=== PATIENT | female | born 1965 | race African-American/Black ===

== ENCOUNTER 2017-10-14 09:37 | Observation (INO) ==
[2017-10-14] MEDS ORDERED: ASPIRIN 325 MG TABLET PO STA (10:00)
[2017-10-14 10:55] LABS: Basophils % 0.2 % (0.0-0.8); Eosinophils # 0.1 10*3/uL (0.0-0.87); Eosinophils % 0.7 % (0.00-10.9); Hemoglobin 13.4 GM/DL (12.0-16.0); Immature Granulocytes % 0.4 %; Immature Granulocytes Absolute 0.03 #; Lymphocytes # 1.7 10*3/uL (1.4-4.0); Lymphocytes % 19.7 % (21.3-54.2); Mean Corpuscular HGB Conc 31.9 GM/DL (32-36); Mean Corpuscular Hemoglobin 28 PG (27-34); Mean Corpuscular Volume 87.1 FL (87-102); Mean Platelet Volume 9.9 FL (9.6-12.0); Monocytes # 0.8 10*3/uL (0.11-0.8); Monocytes % 9.3 % (1.7-12.7); Neutrophils # 5.9 10*3/uL (1.4-7.4); Neutrophils % 69.7 % (38.7-73.9); Platelet Count 231 T/CUMM (130-400); Red Blood Count 4.82 MC/CUMM (3.8-5.5); Red Cell Distribution Width 15.6 % (9.3-17.3); White Blood Count 8.4 T/CUMM (4-12)
[2017-10-14 11:23] LABS: Albumin 3.5 G/DL (3.4-5.0); Bilirubin,Total 0.5 MG/DL (0.2-1.0); Calcium 9.6 MG/DL (8.5-10.1); Osmolality,Calculated 283.4 MOS/KG (273-304); Potassium 3.7 MMOL/L (3.5-5.1); Total Protein 7.9 G/DL (6.4-8.3)
[2017-10-14 12:29] LABS: Apearance,Urine CLOUDY (Clear); Bacteria,Urine Occasional /HPF (Few); Bilirubin,Urine Negative (Negative); Blood, Urine Moderate mg/dL (Negative); Glucose,Urine (UA) Negative (Negative); Hyaline Casts,Urine 17 /LPF (0-3); Ketones,Urine 5 mg/dL (Negative); Mucus,Urine Occasional /LPF (Occasional); Nitrite,Urine Positive (Negative); Protein,Urine 100 MG/DL; RBC,Urine 1 /HPF (0-4); Urine Color Amber (Yellow); Urine Specific Gravity 1.027 (1.001-1.035); Urine Urobilinogen < 2.0 EU/DL (0.2-1.0); WBC,Urine 126 /HPF (0-6)
[2017-10-14 12:31] LABS: Barbiturates Screen,Urine Negative (Negative); Benzodiazepines Screen,Urine Positive (Negative); Cannabinoid Screen,Urine Positive (Negative); Opiate Screen,Urine Positive (Negative); Phencyclidine Screen,Urine Negative (Negative)
[2017-10-14] MEDS ORDERED: cefTRIAXone 1,000 MG in SODIUM CHLORIDE 0.9% 100 ML IV STA (12:39)
[2017-10-14] MEDS ORDERED: cefTRIAXone 1,000 MG VIAL ONE (12:57)
[2017-10-14] MEDS ORDERED: ONDANSETRON 4 MG/2 ML VIAL IV PRN (15:15)
[2017-10-14] MEDS ORDERED: ACETAMINOPHEN 325 MG TABLET PO PRN (15:15)
[2017-10-14] MEDS: SODIUM CHLORIDE 0.9% 1,000 ML IV SCH (15:34)
[2017-10-14] MEDS: PIPERACILLIN/TAZOBACTAM 3,375 MG in SODIUM CHLORIDE 0.9% 100 ML IV SCH (16:01)
[2017-10-15] MEDS: PIPERACILLIN/TAZOBACTAM 3,375 MG in SODIUM CHLORIDE 0.9% 100 ML IV SCH ×3 (00:11→14:19)
[2017-10-15 06:22] LABS: Basophils % 0.3 % (0.0-0.8); Eosinophils # 0.2 10*3/uL (0.0-0.87); Eosinophils % 2.6 % (0.00-10.9); Hematocrit 38.5 VOL% (35.7-47.0); Hemoglobin 12.2 GM/DL (12.0-16.0); Immature Granulocytes % 0.2 %; Immature Granulocytes Absolute 0.01 #; Lymphocytes # 2.5 10*3/uL (1.4-4.0); Lymphocytes % 42.8 % (21.3-54.2); Mean Corpuscular HGB Conc 31.7 GM/DL (32-36); Mean Corpuscular Hemoglobin 28 PG (27-34); Mean Corpuscular Volume 89.1 FL (87-102); Mean Platelet Volume 10.4 FL (9.6-12.0); Monocytes # 0.7 10*3/uL (0.11-0.8); Monocytes % 12.1 % (1.7-12.7); Neutrophils # 2.5 10*3/uL (1.4-7.4); Platelet Count 235 T/CUMM (130-400); Red Blood Count 4.32 MC/CUMM (3.8-5.5); Red Cell Distribution Width 15.5 % (9.3-17.3); White Blood Count 5.9 T/CUMM (4-12)
[2017-10-15 06:59] LABS: Troponin I Only 0.025 NG/ML (0.00-0.045)
[2017-10-15 07:08] LABS: Calcium 9.3 MG/DL (8.5-10.1); Osmolality,Calculated 282.3 MOS/KG (273-304); Potassium 3.9 MMOL/L (3.5-5.1); Thyroid Stimulating Hormone 1.17 uIU/ml (0.358-3.74)
[2017-10-15] MEDS: PANTOPRAZOLE 40 MG TABLET PO SCH (08:14)
[2017-10-15] MEDS: SODIUM CHLORIDE 0.9% 1,000 ML IV SCH ×2 (08:15→18:02)
[2017-10-15] MEDS ORDERED: LORazepam 2 MG/1 ML VIAL IV PRN (08:55)
[2017-10-15] MEDS: levETIRAcetam 500 MG TABLET PO SCH ×2 (09:29→22:13)
[2017-10-15] MEDS ORDERED: levETIRAcetam 500 MG TABLET PO SCH (21:00)
[2017-10-15] MEDS ORDERED: CITALOPRAM 20 MG TABLET PO SCH (21:00)
[2017-10-15] MEDS ORDERED: TRIAMCINOLONE 0.1% OINT 15 GM TUBE TOP SCH (21:00)
[2017-10-15] MEDS: METOPROLOL TARTRATE 25 MG TABLET PO SCH (22:13)
[2017-10-15] MEDS: hydrALAZINE 25 MG TABLET PO SCH (22:13)
[2017-10-15] MEDS: FAMOTIDINE 20 MG TABLET PO SCH (22:14)
[2017-10-16 05:58] LABS: Basophils % 0.4 % (0.0-0.8); Eosinophils # 0.2 10*3/uL (0.0-0.87); Eosinophils % 3.5 % (0.00-10.9); Hematocrit 35.9 VOL% (35.7-47.0); Hemoglobin 11.3 GM/DL (12.0-16.0); Immature Granulocytes % 0.2 %; Immature Granulocytes Absolute 0.01 #; Lymphocytes # 2.2 10*3/uL (1.4-4.0); Lymphocytes % 38.8 % (21.3-54.2); Mean Corpuscular HGB Conc 31.5 GM/DL (32-36); Mean Corpuscular Hemoglobin 28 PG (27-34); Mean Corpuscular Volume 88.6 FL (87-102); Monocytes # 0.6 10*3/uL (0.11-0.8); Monocytes % 10.5 % (1.7-12.7); Neutrophils # 2.7 10*3/uL (1.4-7.4); Neutrophils % 46.6 % (38.7-73.9); Platelet Count 225 T/CUMM (130-400); Red Blood Count 4.05 MC/CUMM (3.8-5.5); Red Cell Distribution Width 14.8 % (9.3-17.3); White Blood Count 5.7 T/CUMM (4-12)
[2017-10-16 06:32] LABS: Calcium 8.9 MG/DL (8.5-10.1); Osmolality,Calculated 281.1 MOS/KG (273-304)
[2017-10-16] MEDS ORDERED: ASPIRIN EC 81 MG TABLET PO SCH (09:00)
[2017-10-16] MEDS ORDERED: ISOSORBIDE MONONITRATE 30 MG TABLET PO SCH (09:00)
[2017-10-16] MEDS: PANTOPRAZOLE 40 MG TABLET PO SCH (09:34)
[2017-10-16] MEDS: hydrALAZINE 25 MG TABLET PO SCH (09:34)
[2017-10-16] MEDS: METOPROLOL TARTRATE 25 MG TABLET PO SCH (09:34)
[2017-10-16] MEDS: FAMOTIDINE 20 MG TABLET PO SCH (09:35)
[2017-10-16] MEDS: levETIRAcetam 500 MG TABLET PO SCH (09:35)
[2017-10-16] MEDS: SODIUM CHLORIDE 0.9% 1,000 ML IV SCH (09:35)
[2017-10-16 11:14] VITALS: BP 138/73
[2017-10-16] MEDS ORDERED: cefTRIAXone 1,000 MG in SYRINGE 1 EACH IV SCH (13:00)
== END 2017-10-16 13:30 | disposition home or self-care (01) ==
LOC: EDBD → EDUNIT# → N.EDINP 09:37 → N.ED 09:37 → SUATTDRO 12:42 → N.EDINP 14:43 → N.5E 15:08
PROVIDERS: ADMIT Family Medicine; ATTEND Internal Medicine

== ENCOUNTER 2017-12-27 10:10 | Inpatient (IN) ==
[2017-12-27 11:48] LABS: Basophils % 0.1 % (0.0-0.8); Eosinophils % 0.1 % (0.00-10.9); Hemoglobin 13.3 GM/DL (12.0-16.0); Immature Granulocytes % 0.2 %; Immature Granulocytes Absolute 0.02 #; Lymphocytes # 0.9 10*3/uL (1.4-4.0); Lymphocytes % 9.3 % (21.3-54.2); Mean Corpuscular HGB Conc 32.4 GM/DL (32-36); Mean Corpuscular Hemoglobin 29 PG (27-34); Mean Corpuscular Volume 90.1 FL (87-102); Mean Platelet Volume 9.8 FL (9.6-12.0); Monocytes # 0.3 10*3/uL (0.11-0.8); Monocytes % 2.7 % (1.7-12.7); Neutrophils # 8.2 10*3/uL (1.4-7.4); Neutrophils % 87.6 % (38.7-73.9); Platelet Count 268 T/CUMM (130-400); Red Blood Count 4.55 MC/CUMM (3.8-5.5); Red Cell Distribution Width 14.3 % (9.3-17.3); White Blood Count 9.3 T/CUMM (4-12)
[2017-12-27 12:23] LABS: Alanine Aminotransferase 17 U/L (13-56); Albumin 3.5 G/DL (3.4-5.0); Alkaline Phosphatase 193 U/L (45-117); Aspartate Amino Transferase 24 U/L (0-37); Bilirubin,Total < 0.39 MG/DL (0.2-1.0); Blood Urea Nitrogen 25 MG/DL (7-18); Calcium 9.5 MG/DL (8.5-10.1); Glucose 182 MG/DL (74-106); Osmolality,Calculated 283.7 MOS/KG (273-304); Potassium 4.2 MMOL/L (3.5-5.1); Sodium 138 MMOL/L (136-145); Total Protein 8.5 G/DL (6.4-8.3)
[2017-12-27] MEDS ORDERED: SODIUM CHLORIDE 0.9% 1,000 ML IV STA (14:12)
[2017-12-27] MEDS ORDERED: ONDANSETRON 4 MG/2 ML VIAL IV STA (14:12)
[2017-12-27] MEDS ORDERED: ONDANSETRON 4 MG/2 ML VIAL ONE (14:15)
[2017-12-27 14:27] LABS: Apearance,Urine Slightly Hazy (Clear); Bacteria,Urine Occasional /HPF (Few); Bilirubin,Urine Negative (Negative); Blood, Urine Moderate mg/dL (Negative); Glucose,Urine (UA) Negative (Negative); Ketones,Urine Negative (Negative); Nitrite,Urine Negative (Negative); Protein,Urine 100 MG/DL; RBC,Urine 17 /HPF (0-4); Squamous Epithelial Cell,Urine Few /HPF (0-10); Urine Color Yellow (Yellow); Urine Specific Gravity 1.019 (1.001-1.035); Urine Urobilinogen < 2.0 EU/DL (0.2-1.0); WBC,Urine 1 /HPF (0-6)
[2017-12-27 14:51] LABS: Barbiturates Screen,Urine Negative (Negative); Benzodiazepines Screen,Urine Positive (Negative); Cannabinoid Screen,Urine Positive (Negative); Opiate Screen,Urine Negative (Negative); Phencyclidine Screen,Urine Negative (Negative)
[2017-12-27] MEDS ORDERED: ONDANSETRON 4 MG/2 ML VIAL IV PRN (16:22)
[2017-12-27] MEDS ORDERED: ACETAMINOPHEN 325 MG TABLET PO PRN (16:22)
[2017-12-27] MEDS: SODIUM CHLORIDE 0.9% 1,000 ML IV SCH (18:10)
[2017-12-27] MEDS: CITALOPRAM 20 MG TABLET PO SCH (20:17)
[2017-12-27] MEDS: ALPRAZolam 0.25 MG TABLET PO PRN (20:17)
[2017-12-27 20:51] LABS: Troponin I Only 0.015 NG/ML (0.00-0.045)
[2017-12-28] MEDS: SODIUM CHLORIDE 0.9% 1,000 ML IV SCH ×3 (02:40→17:09)
[2017-12-28 05:16] LABS: Calcium 7.6 MG/DL (8.5-10.1); Potassium 4.8 MMOL/L (3.5-5.1)
[2017-12-28 05:30] LABS: Basophils % 0.1 % (0.0-0.8); Hematocrit 24.4 VOL% (35.7-47.0); Immature Granulocytes % 0.6 %; Immature Granulocytes Absolute 0.09 #; Lymphocytes # 2.5 10*3/uL (1.4-4.0); Lymphocytes % 16.5 % (21.3-54.2); Mean Corpuscular Hemoglobin 29 PG (27-34); Mean Corpuscular Volume 91.4 FL (87-102); Mean Platelet Volume 9.6 FL (9.6-12.0); Monocytes # 0.7 10*3/uL (0.11-0.8); Monocytes % 4.6 % (1.7-12.7); Neutrophils % 78.2 % (38.7-73.9); Platelet Count 195 T/CUMM (130-400); Red Blood Count 2.67 MC/CUMM (3.8-5.5); Red Cell Distribution Width 14.5 % (9.3-17.3); White Blood Count 15.4 T/CUMM (4-12)
[2017-12-28 05:33] LABS: Hemoglobin 7.8 GM/DL (12.0-16.0)
[2017-12-28 06:05] LABS: Band Neutrophils 1 % (0-10); Lymphocytes 8 % (20-55); Platelet Estimate Normal; Segmented Neutrophils 88 % (50-85); Total Cells Counted 100
[2017-12-28] MEDS ORDERED: SODIUM CHLORIDE 0.9% 1,000 ML IV PRN (06:44)
[2017-12-28] MEDS: PANTOPRAZOLE 40 MG TABLET PO SCH (09:28)
[2017-12-28] MEDS: CITALOPRAM 20 MG TABLET PO SCH (21:01)
[2017-12-28] MEDS: ALPRAZolam 0.25 MG TABLET PO PRN (21:02)
[2017-12-28 22:11] LABS: Hematocrit 26.2 VOL% (35.7-47.0); Hemoglobin 8.7 GM/DL (12.0-16.0)
[2017-12-29] MEDS: SODIUM CHLORIDE 0.9% 1,000 ML IV SCH ×3 (01:08→19:12)
[2017-12-29 05:12] LABS: Basophils % 0.4 % (0.0-0.8); Eosinophils % 0.4 % (0.00-10.9); Hematocrit 26.5 VOL% (35.7-47.0); Hemoglobin 8.6 GM/DL (12.0-16.0); Immature Granulocytes % 0.3 %; Immature Granulocytes Absolute 0.03 #; Lymphocytes # 3.1 10*3/uL (1.4-4.0); Lymphocytes % 27.1 % (21.3-54.2); Mean Corpuscular HGB Conc 32.5 GM/DL (32-36); Mean Corpuscular Hemoglobin 29 PG (27-34); Mean Corpuscular Volume 88.3 FL (87-102); Mean Platelet Volume 10.2 FL (9.6-12.0); Monocytes # 0.5 10*3/uL (0.11-0.8); Monocytes % 4.4 % (1.7-12.7); Neutrophils # 7.6 10*3/uL (1.4-7.4); Neutrophils % 67.4 % (38.7-73.9); Platelet Count 150 T/CUMM (130-400); Red Cell Distribution Width 14.4 % (9.3-17.3); White Blood Count 11.3 T/CUMM (4-12)
[2017-12-29 05:29] LABS: Potassium 4.1 MMOL/L (3.5-5.1)
[2017-12-29] MEDS: PANTOPRAZOLE 40 MG TABLET PO SCH (09:25)
[2017-12-29] MEDS ORDERED: BISACODYL 5 MG TABLET PO ONE (12:00)
[2017-12-29] MEDS ORDERED: POLYETHYLENE GLYCOL POWDER 255 GM BOTTLE PO ONE (18:00)
[2017-12-29] MEDS: CITALOPRAM 20 MG TABLET PO SCH (21:13)
[2017-12-29] MEDS: ALPRAZolam 0.25 MG TABLET PO PRN (21:17)
[2017-12-30] MEDS: SODIUM CHLORIDE 0.9% 1,000 ML IV SCH ×5 (01:59→22:05)
[2017-12-30 05:12] LABS: Basophils % 0.1 % (0.0-0.8); Eosinophils # 0.1 10*3/uL (0.0-0.87); Eosinophils % 0.8 % (0.00-10.9); Hematocrit 26.1 VOL% (35.7-47.0); Hemoglobin 9.1 GM/DL (12.0-16.0); Immature Granulocytes % 0.3 %; Immature Granulocytes Absolute 0.03 #; Lymphocytes # 1.9 10*3/uL (1.4-4.0); Lymphocytes % 19.6 % (21.3-54.2); Mean Corpuscular HGB Conc 34.9 GM/DL (32-36); Mean Corpuscular Hemoglobin 30 PG (27-34); Mean Platelet Volume 9.5 FL (9.6-12.0); Monocytes # 0.5 10*3/uL (0.11-0.8); Monocytes % 5.5 % (1.7-12.7); Neutrophils # 7.2 10*3/uL (1.4-7.4); Neutrophils % 73.7 % (38.7-73.9); Platelet Count 168 T/CUMM (130-400); Red Blood Count 3.07 MC/CUMM (3.8-5.5); Red Cell Distribution Width 14.1 % (9.3-17.3); White Blood Count 9.7 T/CUMM (4-12)
[2017-12-30 05:35] LABS: Calcium 8.1 MG/DL (8.5-10.1); Osmolality,Calculated 281.1 MOS/KG (273-304)
[2017-12-30] MEDS ORDERED: MAGNESIUM CITRATE 300 ML BOTTLE PO ONE (06:00)
[2017-12-30] MEDS ORDERED: PROPOFOL 200 MG/20 ML VIAL IV ONE (10:59)
[2017-12-30] MEDS ORDERED: LIDOCAINE 1% 5 ML VIAL ONE (10:59)
[2017-12-30] MEDS: PANTOPRAZOLE 40 MG TABLET PO SCH (15:23)
[2017-12-30] MEDS: CITALOPRAM 20 MG TABLET PO SCH (21:07)
[2017-12-30] MEDS: ALPRAZolam 0.25 MG TABLET PO PRN (21:07)
[2017-12-31] MEDS: SODIUM CHLORIDE 0.9% 1,000 ML IV SCH ×3 (00:09→10:01)
[2017-12-31] MEDS ORDERED: MAGNESIUM SULF RIDER 4 GM in PREMIX 1 EACH IV PRN (08:36)
[2017-12-31] MEDS ORDERED: MAGNESIUM SULF RIDER 2 GM in PREMIX 1 EACH IV PRN (08:36)
[2017-12-31] MEDS: PANTOPRAZOLE 40 MG TABLET PO SCH (09:58)
[2017-12-31] MEDS ORDERED: METOPROLOL TARTRATE 25 MG TABLET PO ONE (12:43)
[2017-12-31] MEDS ORDERED: levETIRAcetam 500 MG TABLET PO SCH (13:00)
[2017-12-31 15:08] VITALS: BP 134/79
== END 2017-12-31 15:55 | disposition home or self-care (01) | DRG 246 ==
LOC: N.ED 10:10 → N.EDINP 15:10 → SUATTDRO 15:10 → N.TELEN 17:56
PROVIDERS: ADMIT Internal Medicine; ATTEND Internal Medicine Geriatric Medicine

== ENCOUNTER 2018-02-25 10:55 | Inpatient (IN) ==
[2018-02-25 11:56] LABS: Basophils % 0.2 % (0.0-0.8); Eosinophils # 0.1 10*3/uL (0.0-0.87); Eosinophils % 2.4 % (0.00-10.9); Hematocrit 40.3 VOL% (35.7-47.0); Hemoglobin 13.2 GM/DL (12.0-16.0); Immature Granulocytes % 0.2 %; Immature Granulocytes Absolute 0.01 #; Lymphocytes # 1.4 10*3/uL (1.4-4.0); Lymphocytes % 26.9 % (21.3-54.2); Mean Corpuscular HGB Conc 32.8 GM/DL (32-36); Mean Corpuscular Hemoglobin 29 PG (27-34); Mean Platelet Volume 9.7 FL (9.6-12.0); Monocytes # 0.4 10*3/uL (0.11-0.8); Monocytes % 6.9 % (1.7-12.7); Neutrophils # 3.2 10*3/uL (1.4-7.4); Neutrophils % 63.4 % (38.7-73.9); Platelet Count 290 T/CUMM (130-400); Red Blood Count 4.58 MC/CUMM (3.8-5.5); Red Cell Distribution Width 15.3 % (9.3-17.3); White Blood Count 5.1 T/CUMM (4-12)
[2018-02-25] MEDS ORDERED: levETIRAcetam 500 MG/5 ML VIAL IV ONE (12:17)
[2018-02-25 12:29] LABS: Albumin 3.4 G/DL (3.4-5.0); Bilirubin,Total 0.4 MG/DL (0.2-1.0); Calcium 9.6 MG/DL (8.5-10.1); Osmolality,Calculated 279.3 MOS/KG (273-304); Potassium 3.5 MMOL/L (3.5-5.1); Total Protein 8.1 G/DL (6.4-8.3)
[2018-02-25] MEDS ORDERED: ONDANSETRON 4 MG/2 ML VIAL IV PRN (13:44)
[2018-02-25 14:57] LABS: Apearance,Urine CLEAR (Clear); Bilirubin,Urine Negative (Negative); Blood, Urine Small mg/dL (Negative); Glucose,Urine (UA) Negative (Negative); Hyaline Casts,Urine 1 /LPF (0-3); Ketones,Urine Negative (Negative); Mucus,Urine Occasional /LPF (Occasional); Nitrite,Urine Negative (Negative); Protein,Urine 100 MG/DL; RBC,Urine 16 /HPF (0-4); Squamous Epithelial Cell,Urine Occasional /HPF (0-10); Urine Color Yellow (Yellow); Urine Specific Gravity 1.013 (1.001-1.035); Urine Urobilinogen < 2.0 EU/DL (0.2-1.0); WBC,Urine 3 /HPF (0-6)
[2018-02-25 15:00] LABS: Barbiturates Screen,Urine Negative (Negative); Benzodiazepines Screen,Urine Positive (Negative); Cannabinoid Screen,Urine Positive (Negative); Opiate Screen,Urine Negative (Negative); Phencyclidine Screen,Urine Negative (Negative)
[2018-02-25] MEDS ORDERED: LORazepam 2 MG/1 ML VIAL ONE (18:52)
[2018-02-25] MEDS ORDERED: LORazepam 2 MG/1 ML VIAL IV STA (18:56)
[2018-02-25] MEDS: ATORVASTATIN 40 MG TABLET PO SCH (20:45)
[2018-02-25] MEDS: ACETAMINOPHEN 325 MG TABLET PO PRN (20:45)
[2018-02-25] MEDS: traZODone 50 MG TABLET PO PRN (20:45)
[2018-02-25] MEDS: METOPROLOL TARTRATE 25 MG TABLET PO SCH (20:45)
[2018-02-25] MEDS: levETIRAcetam 500 MG TABLET PO SCH (20:46)
[2018-02-26 06:37] LABS: Calcium 9.2 MG/DL (8.5-10.1); Osmolality,Calculated 277.4 MOS/KG (273-304); Potassium 3.5 MMOL/L (3.5-5.1)
[2018-02-26] MEDS: FUROSEMIDE 20 MG TABLET PO SCH (08:48)
[2018-02-26] MEDS: SERTRALINE 50 MG TABLET PO SCH (08:48)
[2018-02-26] MEDS: levETIRAcetam 500 MG TABLET PO SCH ×2 (08:48→20:43)
[2018-02-26] MEDS: METOPROLOL TARTRATE 25 MG TABLET PO SCH ×2 (08:48→20:42)
[2018-02-26] MEDS: ASPIRIN EC 81 MG TABLET PO SCH (08:48)
[2018-02-26] MEDS: ACETAMINOPHEN 325 MG TABLET PO PRN (18:22)
[2018-02-26] MEDS: ATORVASTATIN 40 MG TABLET PO SCH (20:43)
[2018-02-26] MEDS: traZODone 50 MG TABLET PO PRN (20:45)
[2018-02-27] MEDS: levETIRAcetam 500 MG TABLET PO SCH ×2 (09:11→20:46)
[2018-02-27] MEDS: ASPIRIN EC 81 MG TABLET PO SCH (09:11)
[2018-02-27] MEDS: METOPROLOL TARTRATE 25 MG TABLET PO SCH ×2 (09:11→20:46)
[2018-02-27] MEDS: SERTRALINE 50 MG TABLET PO SCH (09:11)
[2018-02-27] MEDS: FUROSEMIDE 20 MG TABLET PO SCH (09:11)
[2018-02-27] MEDS: GABAPENTIN 100 MG CAPSULE PO SCH ×2 (15:56→20:46)
[2018-02-27] MEDS: ATORVASTATIN 40 MG TABLET PO SCH (20:46)
[2018-02-27] MEDS: DOXYCYCLINE HYCLATE 100 MG CAPSULE PO SCH (20:46)
[2018-02-28 05:26] LABS: Basophils % 0.3 % (0.0-0.8); Eosinophils # 0.2 10*3/uL (0.0-0.87); Eosinophils % 2.5 % (0.00-10.9); Hematocrit 40.1 VOL% (35.7-47.0); Immature Granulocytes % 0.1 %; Immature Granulocytes Absolute 0.01 #; Lymphocytes # 2.6 10*3/uL (1.4-4.0); Lymphocytes % 38.1 % (21.3-54.2); Mean Corpuscular HGB Conc 32.4 GM/DL (32-36); Mean Corpuscular Hemoglobin 29 PG (27-34); Mean Corpuscular Volume 88.7 FL (87-102); Mean Platelet Volume 10.5 FL (9.6-12.0); Monocytes # 0.6 10*3/uL (0.11-0.8); Monocytes % 8.5 % (1.7-12.7); Neutrophils # 3.4 10*3/uL (1.4-7.4); Neutrophils % 50.5 % (38.7-73.9); Platelet Count 305 T/CUMM (130-400); Red Blood Count 4.52 MC/CUMM (3.8-5.5); Red Cell Distribution Width 15.1 % (9.3-17.3); White Blood Count 6.7 T/CUMM (4-12)
[2018-02-28 05:51] LABS: Calcium 9.6 MG/DL (8.5-10.1); Osmolality,Calculated 279.4 MOS/KG (273-304); Potassium 3.6 MMOL/L (3.5-5.1)
[2018-02-28] MEDS: levETIRAcetam 500 MG TABLET PO SCH ×3 (09:33→20:28)
[2018-02-28] MEDS: FUROSEMIDE 20 MG TABLET PO SCH (09:33)
[2018-02-28] MEDS: ASPIRIN EC 81 MG TABLET PO SCH (09:33)
[2018-02-28] MEDS: METOPROLOL TARTRATE 25 MG TABLET PO SCH ×2 (09:34→20:29)
[2018-02-28] MEDS: DOXYCYCLINE HYCLATE 100 MG CAPSULE PO SCH ×2 (09:34→20:28)
[2018-02-28] MEDS: SERTRALINE 50 MG TABLET PO SCH (09:35)
[2018-02-28] MEDS: GABAPENTIN 100 MG CAPSULE PO SCH ×3 (09:35→20:29)
[2018-02-28] MEDS ORDERED: LORazepam 2 MG/1 ML VIAL ONE (09:48)
[2018-02-28] MEDS ORDERED: LORazepam 2 MG/1 ML VIAL IV ONE (09:50)
[2018-02-28] MEDS: LACOSAMIDE 50 MG TABLET PO SCH ×2 (10:32→20:29)
[2018-02-28] MEDS: ATORVASTATIN 40 MG TABLET PO SCH (20:28)
[2018-02-28] MEDS: traZODone 50 MG TABLET PO PRN (20:33)
[2018-03-01] MEDS: ASPIRIN EC 81 MG TABLET PO SCH (09:22)
[2018-03-01] MEDS: LACOSAMIDE 50 MG TABLET PO SCH (09:22)
[2018-03-01] MEDS: levETIRAcetam 500 MG TABLET PO SCH (09:22)
[2018-03-01] MEDS: GABAPENTIN 100 MG CAPSULE PO SCH ×2 (09:22→14:49)
[2018-03-01] MEDS: FUROSEMIDE 20 MG TABLET PO SCH (09:22)
[2018-03-01] MEDS: METOPROLOL TARTRATE 25 MG TABLET PO SCH (09:23)
[2018-03-01] MEDS: DOXYCYCLINE HYCLATE 100 MG CAPSULE PO SCH (09:23)
[2018-03-01] MEDS: SERTRALINE 50 MG TABLET PO SCH (09:23)
[2018-03-01 13:13] VITALS: BP 118/77
== END 2018-03-01 16:40 | disposition home or self-care (01) | DRG 53 ==
LOC: EDUNIT# → SUATTDRO → EDBD → N.EDINP 10:55 → N.ED 10:55 → N.EDINP 18:49 → N.4E 18:55
PROVIDERS: ADMIT Internal Medicine; ATTEND Internal Medicine

== ENCOUNTER 2020-04-06 16:53 | Inpatient (IN) ==
[2020-04-06 17:19] LABS: Basophils # 0.1 10*3/uL (0.0-0.2); Basophils % 0.7 % (0.0-0.8); Eosinophils # 0.2 10*3/uL (0.0-0.87); Eosinophils % 2.6 % (0.00-10.9); Hematocrit 40.9 VOL% (35.7-47.0); Hemoglobin 12.9 GM/DL (12.0-16.0); Immature Granulocytes % 0.3 %; Immature Granulocytes Absolute 0.02 #; Lymphocytes # 2.6 10*3/uL (1.4-4.0); Lymphocytes % 33.7 % (21.3-54.2); Mean Corpuscular HGB Conc 31.5 GM/DL (32-36); Mean Corpuscular Volume 90.1 FL (87-102); Mean Platelet Volume 9.9 FL (9.6-12.0); Monocytes % 9.7 % (1.7-12.7); Platelet Count 222 T/CUMM (130-400); Red Blood Count 4.54 MC/CUMM (3.8-5.5); White Blood Count 7.6 T/CUMM (4-12)
[2020-04-06 17:59] LABS: Platelet Estimate Normal
[2020-04-06 18:42] LABS: Alanine Aminotransferase 18 U/L (13-56); Albumin 3.6 G/DL (3.4-5.0); Alkaline Phosphatase 161 U/L (45-117); Aspartate Amino Transferase 27 U/L (0-37); Bilirubin,Total < 0.39 MG/DL (0.2-1.0); Blood Urea Nitrogen 36 MG/DL (7-18); Calcium 9.3 MG/DL (8.5-10.1); Estimated Glom Filtration Rate 29 ML/MIN; Glucose 75 MG/DL (74-106); Osmolality,Calculated 281.7 MOS/KG (273-304); Total Protein 8.3 G/DL (6.4-8.3)
[2020-04-06] MEDS ORDERED: SODIUM CHLORIDE 0.9% 1,000 ML IV STA ×2 (18:57→19:57)
[2020-04-06 19:09] LABS: Apearance,Urine CLEAR (Clear); Bacteria,Urine Occasional /HPF (Few); Bilirubin,Urine Negative (Negative); Blood, Urine Negative (Negative); Glucose,Urine (UA) Negative (Negative); Ketones,Urine Negative (Negative); Mucus,Urine Occasional /LPF (Occasional); Nitrite,Urine Negative (Negative); Protein,Urine 30 MG/DL; RBC,Urine 14 /HPF (0-4); Squamous Epithelial Cell,Urine Occasional /HPF (0-10); Urine Color Yellow (Yellow); Urine Specific Gravity 1.019 (1.001-1.035); Urine Urobilinogen < 2.0 EU/DL (0.2-1.0); WBC,Urine 9 /HPF (0-6)
[2020-04-06] MEDS ORDERED: cefTRIAXone 1,000 MG in SODIUM CHLORIDE 0.9% 100 ML IV STA (19:20)
[2020-04-06] MEDS ORDERED: DEXTROSE 50% 25 GM/50 ML VIAL IV PRN (21:22)
[2020-04-06] MEDS ORDERED: DOCUSATE SODIUM 100 MG CAPSULE PO PRN (21:22)
[2020-04-06] MEDS ORDERED: diphenhydrAMINE CAP 25 MG CAPSULE PO PRN (21:22)
[2020-04-06] MEDS ORDERED: GLUCAGON 1 MG VIAL IM PRN (21:22)
[2020-04-06] MEDS ORDERED: hydrALAZINE 20 MG/1 ML VIAL IV PRN (21:22)
[2020-04-06] MEDS ORDERED: NICOTINE 21 MG/24 HR PATCH TRANSDERM PRN (21:22)
[2020-04-06] MEDS ORDERED: guaiFENesin/DM ER 600-30 MG TABLET PO PRN (21:22)
[2020-04-06] MEDS ORDERED: ALBUTEROL 2.5 MG/3 ML NEB RESP TX PRN (21:22)
[2020-04-06] MEDS ORDERED: ZALEPLON 5 MG CAPSULE PO PRN (21:22)
[2020-04-06] MEDS ORDERED: PROMETHAZINE 25 MG/1 ML VIAL IM PRN (21:22)
[2020-04-06] MEDS ORDERED: ACETAMINOPHEN 325 MG TABLET PO PRN (21:22)
[2020-04-06] MEDS ORDERED: SODIUM CHLORIDE 0.9% 1,000 ML IV SCH (21:30)
[2020-04-07] MEDS ORDERED: SODIUM CHLORIDE 0.9% 1,000 ML IV STA (00:54)
[2020-04-07] MEDS: SODIUM CHLORIDE 0.9% 1,000 ML IV SCH ×3 (02:00→21:14)
[2020-04-07 04:35] LABS: Basophils % 0.4 % (0.0-0.8); Eosinophils # 0.2 10*3/uL (0.0-0.87); Eosinophils % 3.2 % (0.00-10.9); Hematocrit 36.9 VOL% (35.7-47.0); Hemoglobin 11.5 GM/DL (12.0-16.0); Immature Granulocytes % 0.4 %; Immature Granulocytes Absolute 0.03 #; Lymphocytes # 2.2 10*3/uL (1.4-4.0); Mean Corpuscular HGB Conc 31.2 GM/DL (32-36); Mean Corpuscular Volume 91.6 FL (87-102); Mean Platelet Volume 9.9 FL (9.6-12.0); Monocytes % 8.8 % (1.7-12.7); Neutrophils % 58.2 % (38.7-73.9); Platelet Count 247 T/CUMM (130-400); Red Blood Count 4.03 MC/CUMM (3.8-5.5); Red Cell Distribution Width 13.9 % (9.3-17.3); White Blood Count 7.5 T/CUMM (4-12)
[2020-04-07 05:17] LABS: Albumin 3.4 G/DL (3.4-5.0); Bilirubin,Total 0.6 MG/DL (0.2-1.0); Calcium 8.7 MG/DL (8.5-10.1); Total Protein 7.6 G/DL (6.4-8.3)
[2020-04-07] MEDS ORDERED: PANTOPRAZOLE 40 MG TABLET PO ONE (09:44)
[2020-04-07] MEDS ORDERED: HEPARIN 5,000 UNIT/1 ML VIAL ONE (09:44)
[2020-04-07] MEDS: PANTOPRAZOLE 40 MG TABLET PO SCH (09:50)
[2020-04-07] MEDS: HEPARIN 5,000 UNIT/1 ML VIAL SUBCUT SCH ×2 (09:51→21:16)
[2020-04-07] MEDS: GABAPENTIN 100 MG CAPSULE PO SCH ×2 (14:22→21:16)
[2020-04-07] MEDS ORDERED: cefTRIAXone 1,000 MG in SYRINGE 1 EACH IV SCH (20:00)
[2020-04-07] MEDS ORDERED: ATORVASTATIN 40 MG TABLET PO SCH (21:00)
[2020-04-07] MEDS: MORPHINE 4 MG/1 ML VIAL IV PRN (21:03)
[2020-04-07] MEDS: ONDANSETRON 4 MG/2 ML VIAL IV PRN (21:04)
[2020-04-07] MEDS: levETIRAcetam 500 MG TABLET PO SCH (21:15)
[2020-04-07] MEDS: LACOSAMIDE 50 MG TABLET PO SCH (21:15)
[2020-04-08] MEDS: ONDANSETRON 4 MG/2 ML VIAL IV PRN (04:00)
[2020-04-08] MEDS: MORPHINE 4 MG/1 ML VIAL IV PRN ×2 (04:01→09:00)
[2020-04-08 06:12] LABS: Basophils % 0.4 % (0.0-0.8); Eosinophils # 0.2 10*3/uL (0.0-0.87); Hematocrit 36.3 VOL% (35.7-47.0); Hemoglobin 11.3 GM/DL (12.0-16.0); Immature Granulocytes % 0.1 %; Immature Granulocytes Absolute 0.01 #; Lymphocytes # 1.8 10*3/uL (1.4-4.0); Mean Corpuscular HGB Conc 31.1 GM/DL (32-36); Mean Corpuscular Volume 90.1 FL (87-102); Mean Platelet Volume 10.4 FL (9.6-12.0); Monocytes % 9.7 % (1.7-12.7); Neutrophils % 62.8 % (38.7-73.9); Platelet Count 228 T/CUMM (130-400); Red Blood Count 4.03 MC/CUMM (3.8-5.5); Red Cell Distribution Width 13.8 % (9.3-17.3); White Blood Count 7.4 T/CUMM (4-12)
[2020-04-08] MEDS: SODIUM CHLORIDE 0.9% 1,000 ML IV SCH (06:18)
[2020-04-08] MEDS: PANTOPRAZOLE 40 MG TABLET PO SCH (08:59)
[2020-04-08] MEDS: LACOSAMIDE 50 MG TABLET PO SCH (08:59)
[2020-04-08] MEDS: GABAPENTIN 100 MG CAPSULE PO SCH (08:59)
[2020-04-08] MEDS: levETIRAcetam 500 MG TABLET PO SCH (08:59)
[2020-04-08] MEDS: HEPARIN 5,000 UNIT/1 ML VIAL SUBCUT SCH (09:00)
[2020-04-08] MEDS ORDERED: ASPIRIN EC 81 MG TABLET PO SCH (09:00)
[2020-04-08] MEDS ORDERED: SERTRALINE 100 MG TABLET PO SCH (09:00)
[2020-04-08] MEDS ORDERED: CETIRIZINE 10 MG TABLET PO SCH (09:00)
[2020-04-08 13:52] VITALS: BP 137/85
== END 2020-04-08 14:46 | disposition home or self-care (01) | DRG 683 ==
LOC: EDBD → EDUNIT# → N.ED 16:53 → N.EDINP 21:22 → SUATTDRO 21:22 → N.TELEN 04-07 12:22
PROVIDERS: ADMIT Internal Medicine; ATTEND Internal Medicine

== ENCOUNTER 2022-08-01 08:51 | Observation (INO) ==
[2022-08-01] MEDS ORDERED: ASPIRIN 325 MG TABLET PO STA (09:40)
[2022-08-01] MEDS ORDERED: NITROGLYCERIN SL 0.4 MG TABLET SL PRN (09:40)
[2022-08-01 09:48] LABS: Basophils % 0.5 % (0.0-0.8); Eosinophils # 0.1 10*3/uL (0.0-0.87); Eosinophils % 2.3 % (0.00-10.9); Hematocrit 38.1 VOL% (35.7-47.0); Hemoglobin 12.2 GM/DL (12.0-16.0); Immature Granulocytes % 0.3 %; Immature Granulocytes Absolute 0.02 #; Lymphocytes # 1.5 10*3/uL (1.4-4.0); Lymphocytes % 24.3 % (21.3-54.2); Mean Corpuscular Volume 90.1 FL (87-102); Mean Platelet Volume 10.4 FL (9.6-12.0); Monocytes # 0.6 10*3/uL (0.11-0.8); Monocytes % 9.5 % (1.7-12.7); Neutrophils % 63.1 % (38.7-73.9); Platelet Count 216 T/CUMM (130-400); Red Blood Count 4.23 MC/CUMM (3.8-5.5); Red Cell Distribution Width 13.6 % (9.3-17.3); White Blood Count 6.2 T/CUMM (4-12)
[2022-08-01 09:59] LABS: Albumin 3.6 G/DL (3.4-5.0); Bilirubin,Total 0.4 MG/DL (0.20-1.00); Calcium 9.5 MG/DL (8.5-10.1); Osmolality,Calculated 281.1 MOS/KG (273-304); Total Protein 7.1 G/DL (6.4-8.2)
[2022-08-01] MEDS ORDERED: ALUM/MAG/SIMETH/LIDO VISC 1:1 30 ML BOTTLE PO STA (12:09)
[2022-08-01] MEDS ORDERED: hydrALAZINE 20 MG/1 ML VIAL IV PRN (12:33)
[2022-08-01] MEDS ORDERED: ACETAMINOPHEN 325 MG TABLET PO PRN (12:33)
[2022-08-01] MEDS ORDERED: DOCUSATE SODIUM 100 MG CAPSULE PO PRN (12:33)
[2022-08-01] MEDS ORDERED: MORPHINE 2 MG/1 ML SYRINGE IV PRN (12:33)
[2022-08-01] MEDS ORDERED: GABAPENTIN 100 MG CAPSULE PO PRN (12:36)
[2022-08-01] MEDS ORDERED: amLODIPine 10 MG TABLET PO ONE (12:41)
[2022-08-01] MEDS ORDERED: METOPROLOL TARTRATE 25 MG TABLET PO STA (12:42)
[2022-08-01] MEDS ORDERED: traZODone 50 MG TABLET PO PRN (12:52)
[2022-08-01 13:02] LABS: Risk Ratio 2.77; VLDL Cholesterol 20.2 MG/DL
[2022-08-01] MEDS: LACTATED RINGERS 1,000 ML IV SCH ×2 (13:30→23:00)
[2022-08-01] MEDS: VALSARTAN 160 MG TABLET PO SCH (15:46)
[2022-08-01] MEDS: HYDROXYCHLOROQUINE 200 MG TABLET PO SCH (20:20)
[2022-08-01] MEDS: METOPROLOL TARTRATE 25 MG TABLET PO SCH (20:20)
[2022-08-01] MEDS: LACOSAMIDE 50 MG TABLET PO SCH (20:20)
[2022-08-01] MEDS: ONDANSETRON 4 MG/2 ML VIAL IV PRN (20:20)
[2022-08-01] MEDS: levETIRAcetam 500 MG TABLET PO SCH (20:20)
[2022-08-01] MEDS ORDERED: ATORVASTATIN 40 MG TABLET PO SCH (21:00)
[2022-08-02 05:06] LABS: Basophils # 0.1 10*3/uL (0.0-0.2); Basophils % 0.8 % (0.0-0.8); Eosinophils # 0.2 10*3/uL (0.0-0.87); Eosinophils % 2.4 % (0.00-10.9); Hematocrit 36.7 VOL% (35.7-47.0); Hemoglobin 11.6 GM/DL (12.0-16.0); Immature Granulocytes % 0.2 %; Immature Granulocytes Absolute 0.01 #; Lymphocytes # 2.2 10*3/uL (1.4-4.0); Lymphocytes % 35.1 % (21.3-54.2); Mean Corpuscular HGB Conc 31.6 GM/DL (32-36); Mean Corpuscular Volume 90.6 FL (87-102); Mean Platelet Volume 10.4 FL (9.6-12.0); Monocytes # 0.7 10*3/uL (0.11-0.8); Monocytes % 10.4 % (1.7-12.7); Neutrophils % 51.1 % (38.7-73.9); Platelet Count 212 T/CUMM (130-400); Red Blood Count 4.05 MC/CUMM (3.8-5.5); Red Cell Distribution Width 13.4 % (9.3-17.3); White Blood Count 6.3 T/CUMM (4-12)
[2022-08-02 05:27] LABS: Calcium 9.4 MG/DL (8.5-10.1); Potassium 4.3 MMOL/L (3.5-5.1)
[2022-08-02] MEDS ORDERED: LEVOTHYROXINE 50 MCG TABLET PO SCH (06:30)
[2022-08-02] MEDS: LACTATED RINGERS 1,000 ML IV SCH (08:17)
[2022-08-02] MEDS: LACOSAMIDE 50 MG TABLET PO SCH (08:23)
[2022-08-02] MEDS: METOPROLOL TARTRATE 25 MG TABLET PO SCH (08:24)
[2022-08-02] MEDS: HYDROXYCHLOROQUINE 200 MG TABLET PO SCH (08:24)
[2022-08-02] MEDS: VALSARTAN 160 MG TABLET PO SCH (08:24)
[2022-08-02] MEDS: levETIRAcetam 500 MG TABLET PO SCH (08:24)
[2022-08-02] MEDS: ONDANSETRON 4 MG/2 ML VIAL IV PRN (08:34)
[2022-08-02] MEDS ORDERED: amLODIPine 10 MG TABLET PO SCH (09:00)
[2022-08-02] MEDS ORDERED: LEFLUNOMIDE 10 MG TABLET PO SCH (09:00)
[2022-08-02] MEDS ORDERED: MULTIVITAMIN (OCUVITE) TABLET PO SCH (09:00)
[2022-08-02] MEDS ORDERED: ASPIRIN EC 81 MG TABLET PO SCH (09:00)
[2022-08-02] MEDS ORDERED: FUROSEMIDE 20 MG TABLET PO SCH (09:00)
[2022-08-02] MEDS ORDERED: SERTRALINE 100 MG TABLET PO SCH (09:00)
[2022-08-02 11:54] VITALS: BP 140/87
== END 2022-08-02 13:38 | disposition home or self-care (01) ==
LOC: N.ED 08:51 → N.EDINP 08:51 → SUATTDRO 12:33 → N.2W 13:25
PROVIDERS: ADMIT Internal Medicine; ATTEND Internal Medicine